=== PATIENT | male | born 1975 | race Caucasian/White ===

== ENCOUNTER → 2022-03-15 | Outpatient (CLI) | payer OTHER ==
[2022-03-15 10:40] LABS: HEMOGLOBIN 16.7 gm/dl (14.0-17.5); RED BLOOD COUNT 5.31 M/UL (4.20-5.50); WHITE BLOOD COUNT 7.2 K/UL (4.5-11.0)
[2022-03-15 18:33] LABS: BUN/CREATININE RATIO 18 (0-10)
== END ==
LOC: LAB 10:04
PROVIDERS: Nurse Practitioner Family
DX: R63.5 Abnormal weight gain (principal); I10 Essential (primary) hypertension
CPT/HCPCS: 36415; 80053; 80061; 83036; 84443; 85025

== ENCOUNTER → 2022-03-16 | Outpatient (CLI) | payer OTHER | LOC: US 08:15 | DX: I10 Essential (primary) hypertension (principal) | CPT/HCPCS: 93975 ==